=== PATIENT | female | born 1995 | race Two or more races ===

== ENCOUNTER → 2021-10-15 | Day surgery (SDC) | payer OTHER ==
[~2021-10-15] VITALS: Ht 144.8 cm; Wt 83.9 kg
[~2021-10-15] MED LIST: CELEXA20 MG PO; METFORMIN HCL1000 M1 PO; NAPROXEN500 MG PO; PROPRANOLOL HCL10 MG PO; VASCEPA1 GM PO; VITAMIN D21250 MCG PO
[2021-10-15 08:47] LABS: HCG (URINE) SCREEN NEGATIVE (NEGATIVE)
[2021-10-15 08:52] LABS: HCT 44.4 % (37.0-47.0); HGB 14.6 g/dl (12.5-16.0); MCH 26.9 pg (25.0-31.0); MCHC 32.9 g/dL (32.0-36.0); MCV 81.9 fL (78.0-100.0); MPV 9.4 fL (6.0-9.5); RBC 5.42 M/uL (4.20-5.40); RDW 13.4 % (11.5-14.0); WBC 13.5 K/uL (4.0-10.5)
[2021-10-15 09:18] LABS: BUN/CREAT RATIO (CALC) 20.7 RATIO; CREATININE 0.58 mg/dL (0.51-0.95)
== END | disposition home or self-care (01) ==
LOC: FAS 07:56
PROVIDERS: Anesthesiology; Obstetrics & Gynecology
DX: N85.01 Benign endometrial hyperplasia (principal); N93.9 Abnormal uterine and vaginal bleeding, unspecified; F17.210 Nicotine dependence, cigarettes, uncomplicated; E11.9 Type 2 diabetes mellitus without complications; E66.01 Morbid (severe) obesity due to excess calories; Z88.6 Allergy status to analgesic agent; Z79.84 Long term (current) use of oral hypoglycemic drugs; Z68.41 Body mass index [BMI] 40.0-44.9, adult; R00.0 Tachycardia, unspecified; G43.909 Migraine, unspecified, not intractable, without status migrainosus; Z87.09 Personal history of other diseases of the respiratory system
CPT/HCPCS: 36415; 80048; 84703; 86850; 86900; 86901; J1100; J1170; J1885; J2250; J2405; J2704; J3010; J7120